=== PATIENT | female | born 1990 | race Two or more races ===

== ENCOUNTER 2017-09-18 02:41 | Emergency (ER) | payer BC, OTHER ==
[~2017-09-18] VITALS: Ht 167.6 cm; Wt 68.0 kg
[2017-09-18] MEDS ORDERED: IBUPROFEN 800 MG TABLET PO ONE (03:45)
[2017-09-18] MEDS ORDERED: IBUPROFEN 800 MG TABLET ONE (03:45)
[2017-09-18 04:57] LABS: *URINE HCG, QUAL NEGATIVE (NEGATIVE)
--- NOTE | 2017-09-18 05:32 | NUR ---
Patient discharged to home in stable conditon. Written and verbal after care instructions given. Patient verbalizes understanding of instructions.
== END 2017-09-18 05:34 | disposition home or self-care (01) ==
LOC: ER 03:00
DX: S32.612A Displaced avulsion fracture of left ischium, initial encounter for closed fracture (principal); X58.XXXA Exposure to other specified factors, initial encounter; Y93.89 Activity, other specified; Y92.89 Other specified places as the place of occurrence of the external cause; Y99.8 Other external cause status
CPT/HCPCS: 73502; 84703; A4663